=== PATIENT | female | born 1980 | race Two or more races ===

== ENCOUNTER 2017-05-13 23:31 | Emergency (ER) | payer OTHER ==
[2017-05-14] MEDS ORDERED: DIPHENHYDRAMINE HCL 25 MG CAPSULE PO ONE (04:17)
[2017-05-14] MEDS ORDERED: METOCLOPRAMIDE HCL 10 MG TABLET PO ONE (04:17)
--- NOTE | 2017-05-14 04:21 | ER Document Report ---
ED General - General Chief Complaint: Breathing Difficulty Stated Complaint: TROUBLE BREATHING Time Seen by Provider: 05/14/17 02:41 Notes: Patient is a 36-year-old female presents with complaint that she feels that her throat is very tight. She says that this has happened a few times in the past week where she suddenly feels as if her breath is being taken away and her throat feels tight. She says she has some soreness there. She denies actual difficulty swallowing. She does have a history of Arnold-Chiari malformation. She is seeing her neurologist who performed a recent MRI has referred her to neurosurgeon. She denies any weakness numbness in her upper extremities. She says she has chronic recurring headaches but this seem to be worsening. She also has intermittent blurred vision which she feels may also be worsening. She has no other complaints at this time. Recent fevers or infections. No trauma. Patient says that she was seen by her primary care doctor who feels that she is having some anxiety and panic and therefore prescribed medications. Patient says she has not taken these medications. TRAVEL OUTSIDE OF THE [place] IN LAST 30 DAYS: No Past Medical History - Social History Smoking Status: Never Smoker Frequency of alcohol use: None Drug Abuse: None Family History: Reviewed & Not Pertinent Patient has suicidal ideation: No Patient has homicidal ideation: No Renal/ Medical History: Denies: Hx Peritoneal Dialysis Surgical Hx: Negative Review of Systems - Review of Systems Notes: My Normal Review Basic REVIEW OF SYSTEMS: CONSTITUTIONAL : Denies fever, chills, or sweats. Denies recent illness. EENT: Sensation of throat tightness. CARDIOVASCULAR: Denies chest pain. RESPIRATORY: Denies cough, cold, or chest congestion. Denies shortness of breath, difficulty breathing, or wheezing. GASTROINTESTINAL: Denies abdominal pain. Denies nausea, vomiting, or diarrhea. Denies constipation. Last BM: MUSCULOSKELETAL: Denies neck or back pain or joint pain or swelling. SKIN: Denies rash or skin lesions. NEUROLOGICAL: Denies altered mental status or loss of consciousness. Intermittent headache. Denies weakness or paralysis or loss of use of either side. Denies problems with gait or speech. Denies sensory or motor loss. PSYCHIATRIC: Stress anxiety. ALL OTHER SYSTEMS REVIEWED AND NEGATIVE. Physical Exam - Vital signs Vitals: Temp Pulse Resp BP Pulse Ox 98.6 F 64 20 133/60 H 100 05/13/17 23:37 05/13/17 23:37 05/13/17 23:37 05/13/17 23:37 05/13/17 23:37 - Notes Notes: General Appearance: Well nourished, alert, cooperative, no acute distress, no obvious discomfort. Tearful and very anxious appearing. No stridor. No difficulty breathing on exam. No signs of any distress. Vitals: reviewed, See vital signs table. Head: no swelling or tenderness to the head Eyes: PERRL, EOMI, Conjuctiva clear Mouth: No decreasd moisture Throat: No tonsillar inflammation, No airway obstruction, No lymphadenopathy Lungs: No wheezing, No rales, No rhonci, No accessory muscle use, good air exchange bilaterally. Heart: Normal rate, Regular rythm, No murmur, no rub Extremities: strength 5/5 in all extremities, good pulses in all extremities, no swelling or tenderness in the extremities, no edema. Skin: warm, dry, appropriate color, no rash Neuro: speech clear, oriented x 3, normal affect, responds appropriately to questions. Cranial nerves II through XII are intact. Patient is able move all extremities without difficulty. Normal gait. Normal Romberg. Good strength in all 4 extremities. Good distal sensation in all 4 extremities. Course - Re-evaluation Re-evalutation: 05/14/17 08:14 I had a long discussion with the patient as well as the patient's . Informed her that I really felt that this sensation of throat tightening is related to stress and anxiety. I did encourage her to take the exam medications. Also prescribed her Compazine and Benadryl for her headaches. She does not really have signs of emergent neurosurgical condition. She has no weakness or numbness in her arms which I would expect would be the case if she was having emergent compression from her Chiari malformation. Her headache and blurred vision is something she has had now for a long time but she seems to be having a little more often. She has a appropriate upcoming appointment with the neurosurgeon. Encouraged her return to ER if her symptoms are getting worse , she has vomiting, she has intractable headaches, or if she has stridor some noisy breathing. Patient agrees with plan and will be discharged home. Dictation of this chart was performed using voice recognition software; therefore, there may be some unintended grammatical errors. - Vital Signs Vital signs: Temp Pulse Resp BP Pulse Ox 98.1 F 78 18 138/78 H 98 05/14/17 04:57 05/14/17 04:57 05/14/17 04:57 05/14/17 04:57 05/14/17 04:57 Discharge - Discharge Clinical Impression: Throat tightness Headache Qualifiers: Headache type: unspecified Headache chronicity pattern: episodic headache Intractability: not intractable Qualified Code(s): R51 - Headache Condition: Good Disposition: HOME, SELF-CARE Additional Instructions: Please follow up with your neurosurgery appointment. Please take the Compazine with 25mg of Benadryl for headaches. Please return to the ER if you have worsening of your symptoms despite taking this medication, weakness or numbness in your arms or hands, intractable vomiting, or feel unwell. Prescriptions: Metoclopramide HCl [Reglan 10 mg Tablet] 1 tab PO ASDIR PRN #25 tablet PRN Reason: Referrals: JASON SMITH [Primary Care Provider] - Follow up as needed
--- NOTE | 2017-05-14 04:25 | RADIOLOGY REPORT (SQ) ---
EXAM DESCRIPTION: SOFT TISSUE NECK COMPLETED DATE/TIME: 05/14/2017 3:11 am REASON FOR STUDY: choking sensation COMPARISON: None. NUMBER OF VIEWS: Two views. TECHNIQUE: AP and lateral radiographic image of the soft tissues of the neck. LIMITATIONS: None. FINDINGS: EPIGLOTTIS: Normal. Contour normal. Aryepiglottic folds normal. PREVERTEBRAL SOFT TISSUES: Normal. No soft tissue swelling. SUBGLOTTIC AREA: Normal. No narrowing. RETROPHARYNGEAL SPACE: Normal. No soft tissue masses. BONES: No significant findings. LUNG APICES: Normal. OTHER: No radiopaque foreign body. No other significant finding. IMPRESSION: NEGATIVE STUDY OF THE SOFT TISSUES OF THE NECK. TECHNICAL DOCUMENTATION: JOB ID: [id number] [employer]- All Rights Reserved
[2017-05-14 04:58] VITALS: BP 138/78
== END 2017-05-14 04:58 | disposition home or self-care (01) ==
LOC: ER 23:31
DX: J39.2 Other diseases of pharynx (principal); R51 Headache; R06.02 Shortness of breath
CPT/HCPCS: 70360; 99285